=== PATIENT | female | born 1955 | race Caucasian/White ===

== ENCOUNTER 2018-04-19 07:23 | Emergency (ER) | payer BC ==
[2018-04-19 07:41] VITALS: BP 148/95
--- NOTE | 2018-04-19 07:54 | ED ---
Abdominal Pain/Female - HPI Summary HPI Summary: Pt is a 62 y/o F who presents to [facility] c/o diarrhea for 3 days. She describes the diarrhea as watery and denies blood, mucous, or antibiotic use. She visited [place] 2 weeks ago, but was normal and didnt note these symptoms. Notes lower abdominal cramping, nausea, polyuria, and polydipsia. Describes the abdominal pain as pressure and sitting exacerbates the pain according to nurse s report. . - History of Current Complaint Chief Complaint: UCAbdominalPain Stated Complaint: ABD PAIN Time Seen by Provider: 04/19/18 07:35 Hx Obtained From: Patient Onset/Duration: Lasting Days, Still Present Severity Currently: Moderate Pain Intensity: 6 Pain Scale Used: 0-10 Numeric Character: Cramping, Other: - Pressure Aggravating Factor(s): Other: - Position-sitting Associated Signs and Symptoms: Positive: Urinary Symptoms - Polyuria, Nausea, Diarrhea, Other: - Polydipsia. Negative: Blood in Stool Allergies/Adverse Reactions: Allergies Allergy/AdvReac Type Severity Reaction Status Date / Time No Known Allergies Allergy Verified 04/19/18 07:30 Home Medications: Home Medications metFORMIN* [Glucophage 1000 MG TAB *] 500 mg PO DAILY 04/19/18 [History Confirmed 04/19/18] PMH/Surg Hx/FS Hx/Imm Hx Endocrine/Hematology History: Reports: Hx Diabetes - pre-diabetic Denies: Hx Anticoagulant Therapy, Hx Blood Disorders, Hx Thyroid Disease Cardiovascular History: Reports: Hx Hypertension Respiratory History: Denies: Hx Asthma, Hx Chronic Obstructive Pulmonary Disease (COPD) GI History: Denies: Hx Ulcer Musculoskeletal History: Denies: Hx Arthritis, Hx Back Problems - Cancer History Hx Chemotherapy: No Hx Radiation Therapy: No - Surgical History Surgery Procedure, Year, and Place: hysterectomy 2002. bladder sling 2008: Dr Rucker in [place]. Appendectomy 2010 Infectious Disease History: Yes Infectious Disease History: Reports: Hx Shingles Denies: Hx Hepatitis, Hx Human Immunodeficiency Virus (HIV), Hx of Known/ Suspected MRSA, Hx Tuberculosis, Hx Known/Suspected VRE, Hx Known/Suspected VRSA , History Other Infectious Disease, Traveled Outside the in Last 30 Days - Family History Known Family History: Positive: Cardiac Disease, Hypertension - Social History Alcohol Use: Occasionally Substance Use Type: Reports: None Smoking Status (MU): Never Smoked Tobacco Review of Systems Positive: Abdominal Pain, Diarrhea, Nausea Positive: other - Polyuria, polydipsia. Negative: discharge All Other Systems Reviewed And Are Negative: Yes Physical Exam - Summary Physical Exam Summary: VITAL SIGNS: Reviewed. GENERAL: Patient is a well-developed and nourished (MALE OR FEMALE) who is lying comfortable in the stretcher. Patient is not in any acute respiratory distress. HEAD AND FACE: Normocephalic EYES: PERRLA, EOMI x 2. EARS: Hearing grossly intact. MOUTH: Oropharynx within normal limits. NECK: Supple, trachea is midline, no adenopathy, no JVD, no carotid bruit. CHEST: Symmetric, no tenderness at palpation LUNGS: Clear to auscultation bilaterally. No wheezing or crackles. CVS: Regular rate and rhythm, S1 and S2 present, no murmurs or gallops appreciated. ABDOMEN: Soft, non-tender. Bowel sounds are normal. No abdominal abnormal pulsations. EXTREMITIES: Full ROM in all major joints, no edema, no cyanosis or clubbing. NEURO: Alert and oriented x 3. No acute neurological deficits. Speech is normal and follows commands. SKIN: Dry and warm with an increase in turgor. Triage Information Reviewed: Yes Vital Signs On Initial Exam: Initial Vitals Temp Pulse Resp BP Pulse Ox 97 F 87 18 148/95 96 04/19/18 07:33 04/19/18 07:33 04/19/18 07:33 04/19/18 07:33 04/19/18 07:33 Vital Signs Reviewed: Yes Diagnostics - Vital Signs Vital Signs Temp Pulse Resp BP Pulse Ox 04/19/18 07:33 97 F 87 18 148/95 96 - Laboratory Lab Statement: Any lab studies that have been ordered have been reviewed, and results considered in the medical decision making process. Re-Evaluation - Re-Evaluation First Eval Re-Evaluation Time: 08:06 - Discussed diagnosis and discharge plan. Pt now notes that she fell a few days ago and her knees hurt so a knee X-ray is ordered Second Eval Re-Evaluation Time: 08:37 - Discussing knee X-ray resuls with pt and discharge plans Abdominal Pain Fem Course/Dx - Course Course Of Treatment: This patient is a 62-year-old female who presents to the urgent care with chief complaint of having nausea vomiting diarrhea and abdominal cramping. Patient also reports that she has right knee pain but she is able to put pressure. The patient was given Zofran symptoms improved. The patient was not able to give a stool sample but she will be given the containers for stool culture. In the physical exam she has mild tenderness in the lower abdomen however the patient doesn't have a uterus and she does have a appendix. Patient declined to go to the ER. She will be given a position for suffer any increase water intake and follow up with the PCP. Also she reports that the symptoms have been present on and off since she started taking metformin. Therefore he may be the cause of the intermittent diarrhea and abdominal cramping and bloating. The urinalysis is negative for UTI, x-ray of the knee negative for acute fracture dislocation. Therefore she was recommended to increase her water intake, take the sulfa for the nausea and vomiting and follow up with the primary care physician to see if the patient can get a change of medication. She understands and agrees. Patient's questions were answered and she has no further concerns. The patient is hemodynamically stable alert treated 3. The patient was found to have increased BP in UC. The patient will follow up with PCP for better control of BP. - Diagnoses Provider Diagnoses: Nausea and vomiting, Diarrhea, Knee pain, Dehydration Discharge - Sign-Out/Discharge Documenting (check all that apply): Patient Departure - Discharge Plan Condition: Stable Disposition: HOME Prescriptions: Ondansetron TAB* [Zofran 4 MG Tab*] 4 mg PO Q6H PRN #12 tab PRN Reason: Vomiting Patient Education Materials: Traveler's Diarrhea (ED), Dehydration (ED), Acute Nausea and Vomiting (ED), Knee Pain (ED) Referrals: Celia Schaefer MD [Primary Care Provider] - Additional Instructions: Take medications as instructed and adhere to plan Take Acetaminophen or ibuprofen for pain or fever Increase your fluid intake Return to the UC or go to the emergency department if symptoms worsen Follow-up with primary care physician in next 2-3 days - Billing Disposition and Condition Condition: STABLE Disposition: Home
[2018-04-19] MEDS ORDERED: Ondansetron ODT TAB* 4 MG PO ONE (08:02)
--- NOTE | 2018-04-19 08:43 | RAD ---
HISTORY: knee pain COMPARISONS: None VIEWS: 4, Frontal, lateral, axial, and oblique views of the right knee FINDINGS: BONE DENSITY: Normal. BONES: There is no displaced fracture. JOINTS: There is minimal medial compartment and patellofemoral osteophyte formation. There is mild medial compartment joint space narrowing.. There is no suprapatellar joint effusion or lipohemarthrosis. ALIGNMENT: There is no dislocation. SOFT TISSUES: Unremarkable. OTHER FINDINGS: None. IMPRESSION: NO ACUTE OSSEOUS INJURY. IF SYMPTOMS PERSIST, RECOMMEND REPEAT IMAGING.
--- NOTE | 2018-04-20 17:48 | UC ---
- Progress Note Progress Note: Final urine culture report reveals no growth. No change Re-Evaluation - Re-Evaluation First Eval Re-Evaluation Time: 08:06 - Discussed diagnosis and discharge plan. Pt now notes that she fell a few days ago and her knees hurt so a knee X-ray is ordered Second Eval Re-Evaluation Time: 08:37 - Discussing knee X-ray resuls with pt and discharge plans Course/Dx - Diagnoses Provider Diagnoses: Nausea and vomiting, Diarrhea, Knee pain, Dehydration Discharge - Sign-Out/Discharge Documenting (check all that apply): Post-Discharge Follow Up - Discharge Plan Condition: Stable Disposition: HOME Prescriptions: Ondansetron TAB* [Zofran 4 MG Tab*] 4 mg PO Q6H PRN #12 tab PRN Reason: Vomiting Patient Education Materials: Traveler's Diarrhea (ED), Dehydration (ED), Acute Nausea and Vomiting (ED), Knee Pain (ED) Referrals: Celia Schaefer MD [Primary Care Provider] - Additional Instructions: Take medications as instructed and adhere to plan Take Acetaminophen or ibuprofen for pain or fever Increase your fluid intake Return to the or go to the emergency department if symptoms worsen Follow-up with primary care physician in next 2-3 days - Billing Disposition and Condition Condition: STABLE Disposition: Home
== END 2018-04-19 08:45 | disposition home or self-care (01) ==
LOC: UCEAST 07:23
DX: R11.2 Nausea with vomiting, unspecified (principal); R19.7 Diarrhea, unspecified; E86.0 Dehydration; M25.561 Pain in right knee; R73.03 Prediabetes; Z82.49 Family history of ischemic heart disease and other diseases of the circulatory system
CPT/HCPCS: 81003; 87086; 99212; A9270-GY; G0463